=== PATIENT | female | born 1970 | race Hispanic/Latino ===

== ENCOUNTER 2019-09-02 06:21 | Observation (INO) | payer BC ==
[~2019-09-02] VITALS: Ht 182.9 cm; Wt 72.6 kg
[2019-09-02] MEDS ORDERED: SODIUM CHLORIDE 0.9% 1000ML 1,000 ML IV STA (06:44)
[2019-09-02] MEDS ORDERED: ASPIRIN 81 MG CHEW TAB PO ONE (06:45)
[2019-09-02 06:52] LABS: BASOPHILS # (AUTO) 0.2 (0.0-0.1); BASOPHILS % 1.5 % (0.0-1.0); EOSINOPHILS # (AUTO) 0.1 (0.0-0.4); EOSINOPHILS % 1.2 % (0.0-6.0); HEMATOCRIT 41.7 % (34.2-44.1); HEMOGLOBIN 13.9 g/dL (12.0-16.0); LYMPHOCYTES % 34.5 % (18.0-39.1); MEAN CORPUSCULAR HEMOGLOBIN 30.7 pg (28-32); MEAN CORPUSCULAR HGB CONC 33.3 g/dL (31-35); MEAN CORPUSCULAR VOLUME 92.1 fL (81-99); MONOCYTES # (AUTO) 1.1 (0.2-0.8); MONOCYTES % 9.4 % (4.4-11.3); NEUTROPHILS # (AUTO) 6.2 (2.1-6.9); NEUTROPHILS % 53.2 % (38.7-80.0); PLATELET COUNT 398 x10e3/uL (140-360); RED BLOOD COUNT 4.53 x10e6/uL (3.6-5.1)
[2019-09-02 06:58] LABS: INR 0.82; PROTHROMBIN TIME 11.8 seconds (11.9-14.5)
[2019-09-02 07:04] LABS: ALANINE AMINOTRANSFERASE 15 IU/L (0-55); ALBUMIN 3.6 g/dL (3.5-5.0); ALBUMIN/GLOBULIN RATIO 1.1 (0.8-2.0); ALKALINE PHOSPHATASE 100 IU/L (40-150); BLOOD UREA NITROGEN 18 mg/dL (7-26); BUN/CREATININE RATIO 23 (6-25); CARBON DIOXIDE 23 mmol/L (22-29); CHLORIDE 102 mmol/L (98-107); CREATINE KINASE 60 IU/L (29-168); EST GLOMERULAR FILTRATION RATE > 60 ML/MIN (60-); GLUCOSE 287 mg/dL (74-118); SODIUM 134 mmol/L (136-145)
--- NOTE | 2019-09-02 07:28 | Diagnostic Imaging Report ---
Examination: CT BRAIN WO CONTRAST History:Head trauma; facial droop. Comparison studies:None Technique: Axial images were obtained from the skull base to the vertex. Coronal and sagittal images reconstructed from the axial data. Dose modulation, iterative reconstruction, and/or weight based adjustment of the mA/kV was utilized to reduce the radiation dose to as low as reasonably achievable. Intravenous contrast: None Findings: Scalp: No abnormalities. Bones: No fractures, blastic or lytic lesions. Brain sulci: Appropriate for age. Ventricles: Ex vacuo dilation of the occipital horn of the left lateral ventricle. No hydrocephalus. Extra-axial space: No abnormalities. Parenchyma: Cortical based areas of encephalomalacia are identified in the bilateral occipital lobes (right lingual and left cuneus gyri) and are the result of prior vascular insult. No masses, hemorrhage, or acute cortical based vascular insults.. Sellar/suprasellar region: No abnormalities. Craniocervical junction: Patent foramen magnum. No Chiari one malformation. Incidental findings: None. Impression: No acute intracranial abnormalities. 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 Signed by: Dr. Aisha Ambrosio M.D. on 09/02/2019 7:25 AM
[2019-09-02 07:33] LABS: CLARITY,URINE CLEAR (CLEAR); COLOR,URINE YELLOW (YELLOW)
[2019-09-02 07:34] LABS: BACTERIA,URINE RARE /HPF; BILIRUBIN,URINE NEGATIVE (NEGATIVE); KETONES,URINE NEGATIVE (NEGATIVE); LEUKOCYTE ESTERASE ,URINE NEGATIVE (NEGATIVE); NITRITE,URINE NEGATIVE (NEGATIVE); PROTEIN,URINE DIPSTICK NEGATIVE (NEGATIVE); RBC,URINE 0-5 /HPF (0-5); URINE UROBILINOGEN 0.2 mg/dL (0.2 - 1); WBC,URINE (MAN) 0-5 /HPF (0-5)
[2019-09-02 07:35] LABS: EPITHELIAL CELLS,URINE FEW /LPF
--- NOTE | 2019-09-02 07:35 | Diagnostic Imaging Report ---
Examination: CT CERVICAL SPINE WO CONTRAST HISTORY:Neck pain and injury after trauma. COMPARISON:None. TECHNIQUE: Multidetector helical axial images were obtained without contrast from the foramen magnum to T1. Coronal and sagittal reformatted images were done. Bone and soft tissue windows were evaluated. Dose modulation, iterative reconstruction, and/or weight based adjustment of the mA/kV was utilized to reduce the radiation dose to as low as reasonably achievable. FINDINGS: Alignment:Normal alignment with straightening of normal lordosis. Vertebrae: Normal height and density. No acute fracture, infection or neoplasm. Disc space heights: Moderate to severe narrowing at C5-C6. Caliber of spinal canal: Developmentally normal. Posterior fossa and craniocervical junction: Foramen magnum patent. No Chiari 1 malformation. Soft tissues: No abnormality. Degenerative changes: Asymmetric to the right disc osteophyte complex at C5-C6 with severe right foraminal narrowing. No left foraminal or canal stenosis. The remaining levels demonstrate no disc bulge/ herniation or foraminal or canal stenosis. Visualized lung apices: No abnormalities. IMPRESSION: 1. No acute abnormalities. 2. Degenerative change at C5-C6. Signed by: Dr. Aisha Ambrosio M.D. on 09/02/2019 7:32 AM
[2019-09-02 07:36] LABS: AMPHETAMINES SCREEN,URINE NEGATIVE (NEGATIVE); BENZODIAZEPINES SCREEN,URINE NEGATIVE (NEGATIVE); PHENCYCLIDINE SCREEN,URINE NEGATIVE (NEGATIVE)
--- NOTE | 2019-09-02 07:36 | Diagnostic Imaging Report ---
EXAMINATION: PA and lateral views of the chest. COMPARISON: None CLINICAL HISTORY: Fall DISCUSSION: Lines/tubes: None. Lungs: The lungs are well inflated and clear. No pneumonia or pulmonary edema. Pleura: No pleural effusion or pneumothorax. Heart and mediastinum: The cardiomediastinal silhouette is normal. Bones and soft tissues: No acute bony abnormalities. IMPRESSION: No acute cardiopulmonary abnormalities. Signed by: Dr. Juan Mcgee M.D. on 09/02/2019 7:33 AM
[2019-09-02] MEDS ORDERED: MORPHINE SULFATE 2 MG/ML SYR 1ML IV PRN (07:45)
[2019-09-02] MEDS ORDERED: ONDANSETRON HCL INJ 2MG/ML 2ML 2 MG/ML VIAL IV PRN (07:45)
[2019-09-02 07:59] LABS: PREGNANCY TEST, URINE NEGATIVE (NEGATIVE)
--- OUTSIDE RECORDS SUMMARY | 2019-09-02 08:12 | XMS REPORT | Summary of Care ---
Author Author [facility] Organization [facility] Address Unknown Phone Unavailable Care Team Providers Care [facility] Account Manager Name Role Phone Micah Mendez MD PCP Reason for Visit * Reason Comments Follow Up Type 2. PT does not check BG regularly. lost meter in [place]. Encounter Details Care Team Description Date Type Department Kanu Gandara MD [address] [facility] [address], [address] [place] [address] Follow Up (Type 2. PT does not check BG regularly. lost meter in [place]. ) 03/07/2019 Office Visit [facility] Endocrinology [address]; [address] [place] [address] Allergies Comments Active Allergy Reactions Severity Noted Date cough Lisinopril Other (See 10/17/2018 Comments) documented as of this encounter (statuses as of 03/07/2019) Medications End Date Status Medication Sig Dispensed Refills Start Date Active aspirin 81 MG Take 81 mg by 0 tabletIndications: mouth daily. 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, Type 2 diabetes mellitus with hyperglycemia, with long-term current use of insulin Active Glucose Blood Strips accu check 400 Each (ACCU-CHEK COMPACT compact plus; 9 PLUS)Indications: 51 each=3 Diabetes mellitus drums; 4 secondary to times per pancreatectomy, Type 2 day, 90 day diabetes mellitus with supply hyperglycemia, with long-term current use of insulin Active Insulin Pen Needle (B-D Use as 400 Each UF III MINI PEN NEEDLES) directed 4x 9 31G X 5 MM daily with MISCIndications: Type 2 insulin; Dx diabetes mellitus with E11.9 hyperglycemia, with long-term current use of insulin, 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 Acute left MANAGER COSMETICS stroke 02/27/2014 Hyperlipidemia 02/27/2014 Uncontrolled diabetes mellitus 02/27/2014 Unspecified essential hypertension 02/27/2014 Factor V Leiden mutation 02/27/2014 documented as of this encounter (statuses as of 03/07/2019) Social History Date Tobacco Use Types Packs/Day Years Used Never Smoker Smokeless Tobacco: Never Used Drinks/Week oz/Week Comments Alcohol Use socially Yes Sex Assigned at Date Recorded Not on file Industry Job Start Date Occupation Not on file Not on file Not on file Travel End Travel History Travel Start No recent travel history available. documented as of this encounter Last Filed Vital Signs Reading Time Taken Comments Vital Sign 98/70 03/07/2019 3:14 PM CDT Blood Pressure 99 03/07/2019 3:14 PM CDT Pulse - - Temperature 16 03/07/2019 3:14 PM CDT Respiratory Rate - - Oxygen Saturation - - Inhaled Oxygen Concentration 73 kg (161 lb) 03/07/2019 3:14 PM CDT Weight 152.4 cm (5') 03/07/2019 3:14 PM CDT Height 31.44 03/07/2019 3:14 PM CDT Body Mass Index documented in this encounter Patient Instructions * Patient Instructions* Kanu Gandara MD - 03/07/2019 3:30 PM CDT DIABETES INSTRUCTIONS Your new diabetes regimen is as follows: - Jardiance 10 mg daily. - Humalog 10 units with each meal + scale below: Blood Sugar Additional Humalog Insulin Less than 150 No additional insulin 151-200 + 2 units 201-250 + 3 units 251-300 + 4 units 301-350 + 5 units 351-400 + 6 units Insulin Levemir 25 units daily. This is a long acting insulin. Please take at th e same time of the day. Week 1: Metformin XR 500 mg, take 1 tab at dinner Week 2: Metformin XR 500 mg, take 1 tab at breakfast and 1 tab at dinner Week 3: Metformin XR 500 mg, take 1 tab at breakfast and 2 tab at dinner Week 4: Metformin XR 500 mg, take 2 tab at breakfast and 2 tab at dinner PLEASE CHECK YOUR BLOOD GLUCOSE 4 TIMES A DAY: BEFORE BREAKFAST, BEFORE LUNCH, B EFORE DINNER AND AT BEDTIME. Please send the results through [employer] or call in the clinic in 2 weeks after this visit for our review and further recommendation s Important Reminders: - Please remember to obtain your yearly diabetic eye exam for diabetic retinopat hy if you have not done. Please send us a copy of the results if they were not done at [facility]. Our fax # is [phone]. - Please check your blood pressure at home, your blood pressure goal is less caro n 140/90 - Please check your feet daily for ulcers and infections - It is recommended that you eat Diabetic diet. More information can be found a t [email or web address]-[email or web address] - Eat meals on time and on a regular schedule - Blood sugar goals ---- Your fasting blood sugar should be between 90-130 ---- Your blood sugar after meals should be no greater than 180 Treatment of low blood sugar (less than 65) - the 1515 rule Eat 15 grams of carbohydrate 4 glucose tablets OR Half cup (4 ounces) of fruit juice or regular soda OR 6 hard candies OR 1 tablespoon of sugar OR honey Wait 15 minutes for the sugar to get into the blood and check your blood sugar. If it is below 65 then you can repeat with 15 more grams of carbohydrates. Your blood sugar should be checked to make sure it has come within a safe range PLEASE BRING A RECORD OF YOUR DILATED EYE EXAM at your next visit IT IS VERY IMPORTANT TO BRING YOUR BLOOD GLUCOSE LOGS WITH YOU TO EVERY ENDOCRIN E VISIT GENERAL INSTRUCTIONS Please go to the commercial front load driver on your way out today to schedule your next appointm ent. Please let us know what we can do better by providing comments on the survey you will receive. We value your feedback! Return to clinic in 3 months documented in this encounter Progress Notes * Kanu Gandara MD - 03/07/2019 3:30 PM CDT CC> T2DM, following since 12/2015 HPI> Melania Reynolds is a 49 y.o. 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 DM2- uncontrolled. Diagnosed in 12/2015. HEMOGLOBIN A1C Date Value Ref Range Status 02/27/2019 8.5 (H) 4.2 - 5.6 % Final Comment: [employer] GUIDELINES FOR HGB A1C: PREDIABETES/INCREASED RISK . . . . . . . 5.7-6.4% DIAGNOSIS OF DIABETES . . . . . . . . . >=6.5% WITH CONFIRMATION OR APPROPRIATE SYMPTOMS NOTE: ASSAY MAY BE AFFECTED BY HEMOGLOBINOPATHIES (SICKLE CELL ANEMIA, S-C DISEASE, OTHERS) OR ARTIFICIALLY LOWERED BY DECREASED RED CELL SURVIVAL (HEMOLYTIC ANEMIAS, BLOOD LOSS, ETC.). CONSIDER ALTERNATE TESTING OR LABORATORY CONSULTATION. Unless Otherwise Indicated, All Testing Performed At: [facility], [address] [place] [address] Solder Making Supervisor: Gonzalo Tapia M.D. [place] Number [id number] [facility] [place]. [id number] 10/11/2018 10.0 (H) 4.2 - 5.6 % Final Comment: [employer] GUIDELINES FOR HGB A1C: PREDIABETES/INCREASED RISK . . . . . . . 5.7-6.4% DIAGNOSIS OF DIABETES . . . . . . . . . >=6.5% WITH CONFIRMATION OR APPROPRIATE SYMPTOMS NOTE: ASSAY MAY BE AFFECTED BY HEMOGLOBINOPATHIES (SICKLE CELL ANEMIA, S-C DISEASE, OTHERS) OR ARTIFICIALLY LOWERED BY DECREASED RED CELL SURVIVAL (HEMOLYTIC ANEMIAS, BLOOD LOSS, ETC.). CONSIDER ALTERNATE TESTING OR LABORATORY CONSULTATION. Unless Otherwise Indicated, All Testing Performed At: [facility], [address] [place] [address] Solder Making Supervisor: Gonzalo Tapia M.D. CLIA Number [id number] [place]. [id number] 01/12/2018 9.2 (H) 4.2 - 5.6 % Final Comment: [employer] GUIDELINES FOR HGB A1C: PREDIABETES/INCREASED RISK . . . . . . . 5.7-6.4% DIAGNOSIS OF DIABETES . . . . . . . . . >=6.5% WITH CONFIRMATION OR APPROPRIATE SYMPTOMS NOTE: ASSAY MAY BE AFFECTED BY HEMOGLOBINOPATHIES (SICKLE CELL ANEMIA, S-C DISEASE, OTHERS) OR ARTIFICIALLY LOWERED BY DECREASED RED CELL SURVIVAL (HEMOLYTIC ANEMIAS, BLOOD LOSS, ETC.). CONSIDER ALTERNATE TESTING OR LABORATORY CONSULTATION. Unless Otherwise Indicated, All Testing Performed At: [facility], [address] [place] [id number] Solder Making Supervisor: Gonzalo Tapia M.D. NIKKIIA Number [id number] [facility] [place]. 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 Current regimen: not quite compliant with taking her meds - metformin 500 mgXL 2 tablets twice a day - sometimes she breaks it in half and only take 1 tablet a day, 50% of the time - Jardiance 10 mg daily. Understood risk of DKA, dehydration, yeast infection, U TI. - compliant - continue Levemir 25 units at night - compliant - Humalog 10 units with each meal + scale below: sometimes she forgets taking it at work. Sometimes she takes after eating. Blood Sugar Additional Humalog Insulin Less than 150 No additional insulin 151-200 + 2 units 201-250 + 3 units 251-300 + 4 units 301-350 + 5 units 351-400 + 6 units Not checking BG regularly Complications: Eye: no 02/2015--> good 2015; she missed it last 2 years. Plans to have one done this year. Kidney: neg microalbumin 03/2019. Not on arb or hsannon-I (causes cough) Denies neuropathy. Foot exam done 10/2018 lipitor - aching pain; ran out of crestor -> pravastatin--> stopped due to myalgias. Still with joint pain despite stopping pravastatin. Resumed Pravastatin with no issue No CAD. She has had CVA. Allergies Allergen Reactions Lisinopril Other (See Comments) cough Medications reviewed REVIEW OF SYSTEMS GEN stable weight, no fatigue CV no chest pain RESP no short of breath GI denies nausea, vomiting, constipation, diarrhea Neuro no headache/dizziness PHYSICAL EXAM There were no vitals taken for this visit. Wt Readings from Last 3 Encounters: 10/17/18 166 lb (75.3 kg) 01/19/18 164 lb (74.4 kg) 10/05/17 164 lb (74.4 kg) GEN: awake, alert, NAD NECK: Supple. PULM: CTAB, no wheezing or crackles CVS: RRR, no m/r/g ABD: Soft, Warm. NT/ND/NR. +BS. No masses, organomegaly, or bruits. Diabetic Foot Exam Performed 10/2018 Inspection Left - No ulcers or lesions noted and Right - No ulcers or lesions n oted Pulses Left Normal and Right Normal Monofilament Exam Left - Normal and Right - Normal LABS: REVIEWED Component Latest Ref Rng & Units 02/27/2019 GLUCOSE 70 - 99 MG/DL 141 (H) BLOOD UREA NITROGEN 6 - 20 MG/DL 16 CREATININE 0.60 - 1.30 MG/DL 0.58 (L) EGFR AA >60 ML/MIN/1.73 125 EGFR >60 ML/MIN/1.73 107 BUN/CREAT RATIO 6 - 28 RATIO 28 SODIUM 133 - 146 MEQ/L 139 POTASSIUM 3.5 - 5.4 MEQ/L 4.5 CHLORIDE 95 - 107 MEQ/L 101 CO2 19 - 31 MEQ/L 19 CALCIUM 8.5 - 10.5 MG/DL 9.0 PROTEIN TOTAL 6.1 - 8.3 G/DL 6.6 ALBUMIN 3.5 - 5.2 G/DL 4.2 GLOBULINS, SERUM, TOTAL 1.9 - 3.7 G/DL 2.4 A/G RATIO 1.0 - 2.6 RATIO 1.8 BILIRUBIN TOTAL <=1.2 MG/DL 0.3 ALKALINE PHOSPHATASE 40 - 128 U/L 83 AST (SGOT) 9 - 40 U/L 13 ALT (SGPT) 5 - 40 U/L 12 CHOLESTEROL <200 MG/DL 193 TRIGLYCERIDES <150 MG/DL 95 HDL >39 MG/DL 44 LDL CHOLESTEROL CALCULATED <100 MG/DL 130 (H) LDL/HDL RATIO, SERUM <3.22 RATIO 2.95 CREATININE URINE NOT ESTAB MG/DL 164.6 MICROALBUMIN URINE MG/DL 3.7 CALC MICROALB/CREAT RAND <30 MG/G 22 ICD-10-CM 1. Type 2 diabetes mellitus with complication, with long-term current use of ins ulin E11.8 Z79.4 ASSESSMENT Melania Reynolds is a 49 y.o. woman with medical history listed presents f or management of diabetes. 1. Diabetes mellitus with insulin use with hyperglycemia. 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 Understood risk of DKA, dehydration, yeast infection, U TI. - compliant - continue Levemir 25 units at night - compliant - Humalog 10 units with each meal + scale below: sometimes she forgets taking it at work. Sometimes she takes after eating. Blood Sugar Additional Humalog Insulin Less than 150 No additional insulin 151-200 + 2 units 201-250 + 3 units 251-300 + 4 units 301-350 + 5 units 351-400 + 6 units - Freestyle Huma prescribed again - Due for eye exam - patient to make appointment with her Rope Machine Setter. - Urine microalbumin: neg 03/2019, not on SHANNON/ARB, due again 03/2020 - FLP: on statin, FLP 03/2019 2. Dyslipidemia/CVA - resume pravastatin 20 mg since myalgias are occurring despite stopping pravast atin. Counseled to check blood glucose before meals and at bedtime Counseled regarding signs/symptoms of hypoglycemia. Hypoglycemia precautions and management discussed. Counseled to eat all meals on time to avoid hypoglycemia Counseled patient to wear socks/shoes that are loose and examine feet daily RTC 3 months with labs Kanu Gandara MD There are no Patient Instructions on file for this visit. documented in this encounter Plan of Treatment Health Maintenance Due Date Last Done Comments COLON CANCER SCREENIN1969 COLONOSCOPY MAMMOGRAM ANNUAL 1969 TETANUS SHOT (ADULT) 02/04/1984 ANNUAL DIABETIC 1987 RETINOPATHY SCREENING BMI FOLLOW UP PLAN 1987 HIV SCREENING 1987 CERVICAL CANCER SCREENING 1990 3 YEAR FOLLOW UP FLU VACCINE > 6 MONTHS 02/01/2019 A1C TESTING EVERY 6 08/30/2019 02/27/2019, 10/11/2018, 01/12/2018, MONTHS Additional history exists ANNUAL DIABETIC FOOT EXAM 10/18/2019 10/17/2018, 10/17/2018, 10/17/2018, Additional history exists documented as of this encounter Procedures Comments Procedure Name Priority Date/Time Associated Diagnosis POCT HEMOGLOBIN A1C Routine 03/07/2019 Type 2 diabetes mellitus 3:31 PM CDT with complication, with long-term current use of insulin documented in this encounter Results * POCT HEMOGLOBIN A1C (03/07/2019 3:31 PM CDT) HEMOGLOBIN A1C 8.2 (A) 4.0 - 5.6 % Specimen Blood documented in this encounter Visit Diagnoses Diagnosis Type 2 diabetes mellitus with complication, with long-term current use of insulin - Primary documented in this encounter Insurance Type Payer Benefit Subscriber ID Effective Phone Address Plan / Dates Group PPO BLUE CROSS BLUE SHIELD OUT OF xxxxxxxxx [facility] [id number] - [place] - [facility] [id number] documented as of this encounter
--- OUTSIDE RECORDS SUMMARY | 2019-09-02 08:12 | XMS REPORT ---
Author Author [facility] Address Unknown Phone Unavailable Care Team Providers Care Whittling Room Operator Name Role Phone DIOR GABINO Unavailable Unavailable Problems This patient has no known problems. Allergies, Adverse Reactions, Alerts This patient has no known allergies or adverse reactions. Medications This patient has no known medications. Results Test Description Test Time Test Comments Text Results Atomic Results Result Comments CHEST 2 VIEWS 2019-09-02 07:32:00 [place] [id number] Patient Name: ROBSON ZEPEDA MR #: [id number] : 1970 Age/Sex: 49/F Req #: [id number] Adm Physician: Ordered by: GABINO RADER DO Report #: [id number] Location: ER Room/Bed: Procedure: [id number] DX/CHEST 2 VIEWS Exam Date: 09/02/19 Exam Time: 0720 REPORT STATUS: Signed EXAMINATION: PA and lateral views of the chest. CHARLOTTE RISON: None CLINICAL HISTORY: Fall DISCUSSION: Lines/tubes: None. Lungs: The lungs are well inflated and clear. No pneumonia or pulmonary edema. Pleura: No pleural effusion or pneumothorax. Heart and mediastinum: The cardiomediastinal silhouette is normal. Bones and soft tissues: No acute bony abnormalities. IMPRESSION: No acute cardiopulmonary abnormalities. Signed by: Dr. Carla Vegas M.D. on 09/02/2019 7:33 AM Dictated By: CARLA VEGAS MD 2 Transcribed By: PATRICIA on 09/02/19732 COPY TO: RADERGABINO CT CERVICAL SPINE WO 2019-09-02 07:26:00 [place] [id number] Patient Name: ROBSON ZEPEDA MR #: [id number] : 1970 Age/Sex: 49/F Req #: [id number] Adm Physician: Ordered by: SABRINA ELLIS DO Report #: [id number] Location: ER Room/Bed: Procedure: [id number] CT/CT CERVICAL SPINE WO Exam Date: 09/02/19 Exam Time: 624 REPORT STATUS: Signed Examination: CT CERVICAL SPINE WO CONTRAST HIST ORY:Neck pain and injury after trauma. COMPARISON:None. TECHNIQUE: Multidetector helical axial images were obtained without contrast from the foramen magnum to T1. Coronal and sagittal reformatted images were done. Bone and soft tissue windows were evaluated. Dose modulation, iterative reconstruction, and/or weight based adjustment of the mA/kV was utilized to reduce the radiation dose to as low as reasonably achievable. FINDINGS: Alignment:Normal alignment with straightening of normal lordosis. Vertebrae: Normal height and density. No acute fracture, infection or neop lasm. Disc space heights: Moderate to severe narrowing at C5-C6. Caliber of spinal canal: Developmentally normal. Posterior fossa and craniocervical junction: Foramen magnum patent. No Chiari 1 malformation. Soft tissues: No abnormality. Degenerative changes: Asymmetric to the right disc osteophyte complex at C5-C6 with severe right foraminal narrowing. No left foraminal or canal stenosis. The remaining levels demonstrate no disc bulge/ herniation or foraminal or canal stenosis. Visualized lung apices: No abnormalities. IMPRESSION: 1. No acute abnormalities. 2. Degenerative change at C5-C6. Signed by: Dr. Aisha Ambrosio M.D. on 09/02/2019 7:32 AM Dictated By: AISHA MELENDEZ MD 1 Transcribed By: PATRICIA on 09/02/19731 COPY TO: SABRINA ELLIS DO CT BRAIN WO 2019-09-02 07:21:00 [place] [id number] Patient Name: ROBSON ZEPEDA MR #: [id number] : 1970 Age/Sex: 49/F Req #: [id number] Adm Physician: Ordered by: SABRINA ELLIS DO Report #: [id number] Location: ER Room/Bed: Procedure: [id number] CT/CT BRAIN WO Exam Date: 09/02/19 Exam Time: 624 REPORT STATUS: Signed Examination: CT BRAIN WO CONTRAST History:Head trauma; f acial droop. Comparison studies:None Technique: Axial images were obtained from the skull base to the vertex. Coronal and sagittal images reconstructed from the axial data. Dose modulation, iterative reconstruction, and/or weight based adjustment of the mA/kV was utilized to reduce the radiation dose to as low as reasonably achievable. Intravenous contrast: None Findings: Scalp: No abnormalities. Bones: No fractures, blastic or lytic lesions. Brain sulci: Appropriate for age. Ventricles: Ex vacuo dilation of the occipital horn of the left lateral ventricle. No hydrocephalus. Extra-axial space: No abnormalities. Parenchyma: Cortical based areas of encephalomalacia are identified in the bilateral occipital lobes (right lingual and left cuneus gyri) and are the result of prior vascular insult. No masses, hemorrhage, or acute cortical based vascular insults.. Sellar/suprasellar region: No abnormalities. Craniocervical junction: Patent foramen magnum. No Chiari one malformation. Incidental findings: None. Impression: No acute intracranial abnormalities. 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 Signed by: Dr. Aisha Ambrosio M.D. on 09/02/2019 7:25 AM Dictated By: AISHA MELENDEZ MD 4 Transcribed By: PATRICIA on 09/02/19724 COPY TO: SABRINA ELLIS DO SCR MAMM BILATERAL AUDRA CAD DIGITAL 2019-04-25 16:18:18 - SCR MAMM BILATERAL AUDRA CAD DIGITALBILATERAL DIGITAL SCREENING MAMMOGRAM 3D/2D WITH CAD: 04/25/2019CLINICAL: Asymptomatic. Digital breast tomosynthesis was performed in addition to routine CC and MLO views. Current mammographic images were evaluated by either a [employer] M-Vu or a [employer] ImageMedProer CAD (computer aided detection system). Comparison is made to exams dated 01/19/2018 mammogram, 05/04/2016 mammogram, and 01/28/2015 mammogram - [facility]-. The tissue of both breasts is heterogeneously dense. This may lower the sensitivity of mammography. No suspicious mass, architectural distortion, malignant type calcification, or lymph node abnormality detected. Breast architecture is stable compared to prior exams.IMPRESSION: NEGATIVEThere is no mammographic evidence of malignancy. Resume annual screening mammography in one year. Sherwin Ríos M.D. ss/penrad:04/25/2019 16:18:18 Art Instructor: Lennox DOWLING, [facility]-FWletter sent: BIRADS 1-2 Normal Mammogram BI-RADS: 1 Negative
[2019-09-02] MEDS ORDERED: DEXTROSE 50% SYRINGE 50 ML IV PRN ×2 (08:15→11:30)
[2019-09-02 08:29] VITALS: BP 154/92
--- NOTE | 2019-09-02 08:30 | NUR ---
Pt received from ER at this time. Pt is aox4 and able to verbalize needs but is speech is slurred due to stroke. Some drooling noted to left side as well. Pt denies any pain, SOB. Consult for Dr. Hsu was called. 0 s/s of acute distress noted.
[2019-09-02] MEDS ORDERED: METFORMIN HCL500 MG PO (09:25)
[2019-09-02] MEDS ORDERED: HUMALOG100 UNIT/1 SQ (09:25)
[2019-09-02] MEDS ORDERED: JARDIANCE10 MG PO (09:25)
[2019-09-02] MEDS ORDERED: LEVEMIR100 UNIT/1 SQ (09:25)
[2019-09-02] MEDS ORDERED: PRAVASTATIN SOD10 MG PO (09:25)
[2019-09-02] MEDS ORDERED: INSULIN REGULAR, HUMAN 100 UNIT/1 ML 3ML VIAL SQ SCH (11:30)
[2019-09-02] MEDS ORDERED: HYDRALAZINE HCL 20 MG/ML VIAL IV PRN (11:45)
[2019-09-02] MEDS ORDERED: SODIUM CHLORIDE 0.9% 100 ML ONE (12:08)
[2019-09-02] MEDS ORDERED: IOPAMIDOL 370 MG/ML 200 ML INFUS..BTL INJ ONE (12:08)
[2019-09-02] MEDS: SODIUM CHLORIDE 0.9% 1000ML 1,000 ML IV SCH ×3 (12:15→23:44)
[2019-09-02] MEDS: INSULIN LISPRO 100 UNIT/1 ML 3ML VIAL SQ SCH ×3 (12:15→20:44)
[2019-09-02 12:18] VITALS: BP 135/78
--- NOTE | 2019-09-02 14:13 | Diagnostic Imaging Report ---
Examination: Cervical and Intracranial CT Angiogram with Contrast History: Facial droop. Comparison studies: None Technique: Axial images were obtained from the thoracic inlet. Coronal and sagittal images reconstructed from the axial data. Intravenous contrast: 100 mL of Isovue 370. Degree of stenosis at the carotid bulbs, if present, will be calculated using NASCET criteria where the smallest diameter at the location of stenosis is compared to the diameter of the more distal non-diseased vessel lumen. Computer generated maximum intensity projection and 3D images of the cervical and intracranial anterior and posterior circulations were performed on a separate workstation. Dose modulation, iterative reconstruction, and/or weight based adjustment of the mA/kV was utilized to reduce the radiation dose to as low as reasonably achievable. Findings: CTA neck: Aortic arch and major vessels: Patent. Nonstenotic atherosclerotic calcification. Common carotid arteries: Patent Cervical carotid bifurcations: Right: Patent. Left :Patent. Internal carotid arteries: Right: Patent. Left: Patent. Vertebral arteries: Hypoplastic on the right from V1-proximal V4. The mid to distal right V4 demonstrates contrast opacification probably due to retrograde flow from the basilar and variant left vertebral artery. The left vertebral artery originates from the left external carotid artery and becomes the V3 and V4 segments. Absent left V1 and V2. CTA head: Internal carotid arteries: Patent. Anterior cerebral arteries: Patent A1 and A2 segments. Middle cerebral arteries: Patent M1 and M2 segments. Posterior cerebral arteries: Patent P1 and P2 segments. Vertebro-basilar system: Patent basilar. Refer to above with regard to vertebral arteries. Anatomical variants: Anterior communicating artery :Present Posterior communicating arteries: Not visualized. Vertebral arteries: Left dominant with variant anatomy. IMPRESSION: 1. No cervical or intracranial arterial stenosis or occlusion or vascular malformation. 2. Nonstenotic calcification of the aortic arch. 3. Left vertebral artery variant anatomy with origin from the left external carotid artery. Hypoplastic right vertebral artery with patent mid to distal right V4 vertebral artery segment. Signed by: Dr. Aisha Ambrosio M.D. on 09/02/2019 2:11 PM
--- NOTE | 2019-09-02 14:31 | Diagnostic Imaging Report ---
Examination: MRI BRAIN WO CONTRAST History: Facial droop Comparison studies: Head CT from earlier today. Technique: Sagittal T2; axial DWI, FLAIR, GRE or SWI, T1, Coronal FLAIR. Intravenous contrast: None Findings: Scalp: No abnormal signal. No masses. Bone marrow: Normal in signal intensity. Brain volume: Adequate for age. No volume loss. Ventricles: Ex vacuo dilation of the occipital horn of the left lateral ventricle. No hydrocephalus. Extra-axial spaces: No abnormalities. Parenchyma: Cortical based areas of encephalomalacia are identified in the bilateral occipital lobes (right lingual and left cuneus gyri) and are the result of prior vascular insult. There is restricted diffusion of the left frontal operculum and left precentral gyrus with mild cortical signal change in the operculum. There are many punctate areas of T2/FLAIR hyperintensity in the periventricular and subcortical white matter, nonspecific. No masses, hemorrhage. Suprasellar and sellar region: No abnormalities. Craniocervical junction: No abnormalities. The foramen magnum is patent. No Chiari malformations. Vessels: Normal flow-voids in the arteries and sinuses. Additional findings:None. IMPRESSION: Hyperacute, nonhemorrhagic right middle cerebral artery infarction. Mild chronic microvascular ischemic change. 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 Dr. Aisha Ambrosio discussed hyperacute infarct finding with Ana Morales FR[employer] FOODS TECHNICIAN on 09/02/2019 at 1418 hours. Ms Morales said she would convey the message to Dr. Hsu, neurologist. Signed by: Dr. Aisha Ambrosio M.D. on 09/02/2019 2:28 PM
--- NOTE | 2019-09-02 15:00 | NUR ---
Results of MRI of brain called to Dr. Hsu and no new orders received.
[2019-09-02 16:00] VITALS: BP 143/77
[2019-09-02 16:08] LABS: CHOL/HDL RATIO 3.6 (3.0-3.6)
[2019-09-02] MEDS: FAMOTIDINE 20 MG TAB PO SCH (17:25)
[2019-09-02] MEDS: APIXABAN 5 MG TABLET PO SCH (17:25)
[2019-09-02] MEDS: ACETAMINOPHEN 325 MG TAB PO PRN (17:26)
--- NOTE | 2019-09-02 17:59 | Consultation ---
DATE OF CONSULTATION: 09/02/2019 Neurology Consultation HISTORY OF PRESENT ILLNESS: She is a 49-year-old right-handed female, who comes to my attention for sudden onset acute neurological deficits, specifically left hand and face weakness. 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 In any case, she woke up with left-sided hemiparesis and mild , came to the emergency room. She was out of the tPA window, tPA was not given, and she states that at home she does have a history of hypertension. She denies history of diabetes. She does have a known history of hyperhomocystinemia, which is hypercoagulable state. She is not taking anticoagulation. Denies arrhythmias. Denies seizures. Denies previous cardiovascular history, but endorses a previous history of a stroke as well. She denies tobacco, alcohol, or drugs. REVIEW OF SYSTEMS: Other than weakness is entirely negative. PHYSICAL EXAMINATION: VITAL SIGNS: We have a temperature of 98.2, pulse of 104 and regular, and blood pressure is 154/92. NEUROLOGIC: Extraocular muscles intact. Face shows upper motor neuron left facial weakness with drooling, but eyelid. Strength in the left arm is diminished. Right arm is 5/5. There is no ataxia. There is mild dysmetria in the left hand. Reflexes are symmetric. Toes are downgoing bilaterally. Sensory is grossly intact with some decrement in the left arm. CARDIOVASCULAR: Regular rate and rhythm. PULMONARY: Clear. ABDOMEN: Soft and nontender. ASSESSMENT AND PLAN: We have Melania Reynolds who is a 49-year-old female with history of hyperhomocystinemia. I am going to recheck that lab. I am going to check for hypercoagulable state as well. We will advance her to full anticoagulation due to hypercoagulable state, get an echocardiogram and carotid duplex and vascular imaging of the head and neck and I would recommend hematology evaluation given the patient's history of previous stroke and hypercoagulable state at the young age. Otherwise, PT, OT, and speech therapy were recommended as well as outpatient rehab. MD CARRINGTON CHRISTIANSEN /[id number]
--- NOTE | 2019-09-02 19:10 | NUR ---
Completed shift report completed with morning nurse. Pt alert to name, lying in bed HOB 30 degrees. Denies pain at this time. Call light within reach. Will continue to monitor.
[2019-09-02 20:00] VITALS: BP 122/61
[2019-09-02 21:34] VITALS: BP 122/61
[2019-09-03] VITALS: BP 132/63
[2019-09-03 04:00] VITALS: BP 160/77
[2019-09-03 05:47] LABS: BASOPHILS # (AUTO) 0.2 (0.0-0.1); BASOPHILS % 1.3 % (0.0-1.0); EOSINOPHILS # (AUTO) 0.1 (0.0-0.4); EOSINOPHILS % 0.8 % (0.0-6.0); HEMATOCRIT 39.5 % (34.2-44.1); HEMOGLOBIN 13.1 g/dL (12.0-16.0); LYMPHOCYTES # (AUTO) 4.1 (1.0-3.2); LYMPHOCYTES % 32.6 % (18.0-39.1); MEAN CORPUSCULAR HEMOGLOBIN 30.4 pg (28-32); MEAN CORPUSCULAR HGB CONC 33.2 g/dL (31-35); MEAN CORPUSCULAR VOLUME 91.6 fL (81-99); MONOCYTES % 7.8 % (4.4-11.3); NEUTROPHILS # (AUTO) 7.1 (2.1-6.9); NEUTROPHILS % 57.2 % (38.7-80.0); PLATELET COUNT 387 x10e3/uL (140-360); RED BLOOD COUNT 4.31 x10e6/uL (3.6-5.1)
[2019-09-03 06:11] LABS: BLOOD UREA NITROGEN 11 mg/dL (7-26); BUN/CREATININE RATIO 19 (6-25); CALCIUM 7.9 mg/dL (8.4-10.2); CARBON DIOXIDE 21 mmol/L (22-29); CHLORIDE 107 mmol/L (98-107); CREATININE, SERUM 0.57 mg/dL (0.57-1.11); EST GLOMERULAR FILTRATION RATE > 60 ML/MIN (60-); GLUCOSE 168 mg/dL (74-118); SODIUM 136 mmol/L (136-145)
[2019-09-03 06:30] LABS: MAGNESIUM 1.6 MG/DL (1.3-2.1)
--- NOTE | 2019-09-03 07:05 | NUR ---
BS shift report with morning nurse. Pt lying in bed, no acute distress noted.
[2019-09-03] MEDS: INSULIN LISPRO 100 UNIT/1 ML 3ML VIAL SQ SCH ×3 (07:30→16:30)
--- NOTE | 2019-09-03 07:35 | NUR ---
PATIENT ASSISTED TO THE RESTROOM AND BACK TO BED, NO DISTRESS NOTED. BRUISE TO RIGHT EYE, S/P FALL AT HOME. BED IN LOWER POSITION, CALL LIGHT AT REACH.
[2019-09-03 07:40] VITALS: BP 138/68
[2019-09-03] MEDS: FAMOTIDINE 20 MG TAB PO SCH ×2 (07:47→17:08)
[2019-09-03 07:49] VITALS: BP 138/68
[2019-09-03] MEDS: SODIUM CHLORIDE 0.9% 1000ML 1,000 ML IV SCH (07:57)
[2019-09-03] MEDS: ACETAMINOPHEN 325 MG TAB PO PRN (08:30)
[2019-09-03 08:46] LABS: THYROID STIMULATING HORMONE 0.788 uIU/mL (0.350-4.940)
[2019-09-03] MEDS: APIXABAN 5 MG TABLET PO SCH ×2 (09:19→17:08)
[2019-09-03] MEDS ORDERED: ELIQUIS5 MG PO (09:24)
[2019-09-03] MEDS ORDERED: ONDANSETRON HCL 4 MG ORAL DISINTEGRATING TAB PO PRN (10:30)
--- NOTE | 2019-09-03 11:30 | NUR ---
PATIENT AMBULATING IN HALLWAY WITH PHYSICAL THERAPY, NO COMPLAIN VOICED. WILL CONTINUE TO MONITOR.
[2019-09-03 11:38] VITALS: BP 118/74
--- NOTE | 2019-09-03 12:27 | NUR ---
Discontinuing PT services since patient is independent in functional mobility. Thank you. Addendum: 09/03/19 at 1228 by Yazan carlson PT Amended: Links added.
--- NOTE | 2019-09-03 12:37 | NUR ---
patient doing well 96.8 88 160/77 eomi face l umn weakness speech mild dysarthria left arm 3/5 right 5/5 rrr cta abd soft nt no ataxia a/p stroke hx of stroke at young age likely underlying hypercoag state on anticoagulation see hematology pt ot rehab evla statin blood workup in progress blood pressure contorl, max systolid 140
[2019-09-03 15:25] VITALS: BP 135/83
--- NOTE | 2019-09-03 15:35 | Consultation ---
DATE OF CONSULTATION: 09/03/2019 REASON FOR CONSULTATION: Hypercoagulable disorder. HISTORY OF PRESENT ILLNESS: She is 49-year-old female with past medical history include CVA x2 with residual neurological deficit. Currently, in hospital with sudden onset of acute neurological deficit, include left hand and face weakness. She was diagnosed first time with CVA when she was very young. She continued on antiplatelet and anticoagulation treatment. Recently, anticoagulation was discontinued. She was on Xarelto. She also has a history of hyperhomocysteinemia. She is currently started on Eliquis. She was followed neurologist. She had hypercoagulable workup ordered. Her MRI showed hyperacute nonhemorrhagic right middle cerebral artery infarction with chronic changes. Her recent labs reported normal. PAST MEDICAL HISTORY: Stroke, hyperhomocysteinemia. ALLERGIES: LIST REVIEWED. MEDICATIONS: List reviewed. REVIEW OF SYSTEMS: As per HPI. FAMILY HISTORY: Not relevant. PHYSICAL EXAMINATION: GENERAL: Alert, awake, communicative with some residual memory deficits. HEENT: Normocephalic, atraumatic. Sclerae are pale. Conjunctivae clear. NECK: Supple. CHEST: Clear to auscultation. CARDIOVASCULAR: Regular rate and rhythm. ABDOMEN: Soft, nontender. EXTREMITIES: Some swelling. NET WPF DEVELOPER: Some left facial weakness. LABS AND IMAGING: Reviewed. ASSESSMENT AND PLAN: 1. The patient with history of hyperhomocysteinemia, history of stroke twice, was managed with Xarelto, recently discontinued admitted with sudden stroke. 2. Likely underlying hypercoagulable disorder. 3. Hypercoagulable workup is already requested. 4. The patient already started on Eliquis. RECOMMENDATION: 1. Continue lifelong anticoagulation with antiplatelet medication. 2. Monitor neurological signs and symptoms very closely. 3. Rehab. 4. Social support. 5. Nutritional support. 6. We will monitor the patient very closely. MD JAMARCUS Jack/MODL /[id number]
--- NOTE | 2019-09-03 18:15 | NUR ---
PATIENT DISCHARGED HOME. DISCHARGE INSTRUCTIONS, PRESCRIPTION, AND FOLLOW UP GIVEN TO PATIENT, SHE VERBALIZED UNDERSTANDING.IV TO RIGHT AC REMOVED WITH TIP INTACT. ALL PERSONAL ITEMS TAKEN WITH PATIENT. REFUSED WHEEL CHAIR, BUT WAS ACCOMPANIED BY HOSPITAL STAFF TO FRONT LOBBY IN STABLE CONDITION.
--- NOTE | 2019-09-04 19:13 | Discharge Summary ---
ADMISSION DIAGNOSES: 1. Facial droop. 2. Type 2 diabetes. 3. Obesity with BMI of 31.2. 4. Factor V Leiden. DISCHARGE DIAGNOSES: 1. Facial droop. 2. Type 2 diabetes. 3. Obesity with BMI of 31.2. 4. Factor V Leiden. 5. Right middle cerebral artery infarction. HISTORY: Type 2 diabetes, hyperlipidemia, CVA, and factor V. SURGICAL HISTORY: Splenectomy, laparoscopic liver surgery, and bilateral knee surgery. FAMILY HISTORY: The patient's grandmother had diabetes. SOCIAL HISTORY: Occasional alcohol use. HOSPITAL COURSE: A 49-year-old female with past medical history of factor V, admits with complaints of left facial droop that she noticed around 05:00 a.m. with slurred speech after having a fall while walking to the restroom. She called her father, had trouble speaking, so he called the ambulance. On admission, CT of the brain was done, which showed no acute abnormality. CT of the C-spine showed no acute abnormality. Chest x-ray was negative. EKG showed normal sinus rhythm. Echo showed an EF of 50%. Bilateral carotid Doppler showed evidence of carotid disease, so Neurology ordered a CTA of the head and neck, which showed no cervical or intracranial arterial stenosis or occlusion or vascular malformation. The patient then had an MRI of the brain per Neurology recommendation, which showed a hyperacute nonhemorrhagic right middle cerebral artery infarction and chronic bilateral posterior cerebral artery territory insult. Urine drug screen was negative. The patient was started on Eliquis. Hematology was then consulted, who agreed with Eliquis. The patient's cholesterol was 206. She says she does not take her cholesterol medicine on a daily basis, but she will start to do so. She will discharge home on same prescriptions plus Eliquis. She will follow up with Hematology for any refills of Eliquis. The patient understands discharge instructions and agrees to plan. Dictated by Jenifer Griffith NP Radames Torres MD AKBAR/MODL /[id number]
== END 2019-09-03 18:10 | disposition home or self-care (01) ==
LOC: ER 06:21 → ERHOLD 07:44 → MED/SURG3 08:31
PROVIDERS: ADMIT Internal Medicine; ATTEND Internal Medicine
DX: I63.511 Cerebral infarction due to unspecified occlusion or stenosis of right middle cerebral artery (principal); R29.810 Facial weakness; G81.94 Hemiplegia, unspecified affecting left nondominant side; E72.11 Homocystinuria; D68.51 Activated protein C resistance; E11.9 Type 2 diabetes mellitus without complications; E78.5 Hyperlipidemia, unspecified; Z83.3 Family history of diabetes mellitus; Z80.9 Family history of malignant neoplasm, unspecified; E66.9 Obesity, unspecified; Z68.31 Body mass index [BMI] 31.0-31.9, adult; Z86.73 Personal history of transient ischemic attack (TIA), and cerebral infarction without residual deficits; R47.1 Dysarthria and anarthria; Z79.4 Long term (current) use of insulin
CPT/HCPCS: 36415 ×2; 70450; 70496; 70498; 70551; 71046; 72125; 80048; 80053; 80061; 80307; 81001; 81025; 81240; 81291; 82550; 82553; 82746; 82948 ×2; 83036; 83090; 83735; 84443; 84484; 85025 ×2; 85300; 85303; 85306; 85307; 85420; 85597; 85610; 85613; 85730; 86039; 93005; 93306; 93880; 96360; 96361; 97139; 97161; 97530; 99284; G0378 ×2; J7030 ×2; J7050; Q9967

== ENCOUNTER 2021-02-12 12:57 | Inpatient (IN) | payer BC ==
[~2021-02-12] VITALS: Ht 152.4 cm; Wt 68.9 kg
[~2021-02-12 12:57] MED LIST: ELIQUIS5 MG PO; HUMALOG100 UNIT/1 SQ; JARDIANCE10 MG PO; LEVEMIR100 UNIT/1 SQ; METFORMIN HCL500 MG PO; PRAVASTATIN SOD10 MG PO
[2021-02-12] MEDS ORDERED: SODIUM CHLORIDE 0.9% 1000ML 1,000 ML IV SCH (15:00)
[2021-02-12] MEDS ORDERED: DEXAMETHASONE SOD PHOS INJ 4 MG/ML VIAL IV ONE (15:15)
[2021-02-12] MEDS ORDERED: SODIUM CHLORIDE 0.9% 1000ML 1,000 ML ONE (15:59)
[2021-02-12] MEDS ORDERED: SODIUM CHLORIDE 0.9% 50ML 50 ML ONE (15:59)
[2021-02-12] MEDS ORDERED: DEXAMETHASONE SOD PHOS INJ 4 MG/ML VIAL ONE (15:59)
[2021-02-12] MEDS ORDERED: CEFTRIAXONE 1 GM VIAL ONE (16:00)
[2021-02-12] MEDS ORDERED: SODIUM CHLORIDE 0.9% 250ML 250 ML ONE (16:00)
[2021-02-12] MEDS: CEFTRIAXONE 1 GM in SODIUM CHLORIDE 0.9% 50ML 50 ML IV SCH (16:00)
[2021-02-12] MEDS: SODIUM CHLORIDE 0.9% 1000ML 1,000 ML IV SCH (16:28)
[2021-02-12 17:05] LABS: CREATINE KINASE MB 0.3 ng/mL (0-5.0)
[2021-02-12 20:49] VITALS: BP 119/71
[2021-02-12 21:10] VITALS: BP 119/71
[2021-02-13] VITALS (8 sets, daily range): BP systolic 127–150; BP diastolic 73–84
[2021-02-13] MEDS: SODIUM CHLORIDE 0.9% 1000ML 1,000 ML IV SCH ×3 (04:46→20:48)
[2021-02-13] MEDS ORDERED: ONDANSETRON HCL INJ 2MG/ML 2ML 2 MG/ML VIAL IV PRN (06:45)
[2021-02-13] MEDS ORDERED: DOCUSATE SODIUM 100 MG CAP PO PRN (06:45)
[2021-02-13] MEDS ORDERED: DEXTROSE 50% SYRINGE 50 ML IV PRN (07:00)
[2021-02-13] MEDS: FAMOTIDINE 20 MG TAB PO SCH ×2 (07:30→16:30)
[2021-02-13 07:45] LABS: BASOPHILS % 0.3 % (0.0-1.0); HEMATOCRIT 42.3 % (34.2-44.1); HEMOGLOBIN 13.6 g/dL (12.0-16.0); LYMPHOCYTES # (AUTO) 1.3 (1.0-3.2); LYMPHOCYTES % 11.8 % (18.0-39.1); MEAN CORPUSCULAR HEMOGLOBIN 29.6 pg (28-32); MEAN CORPUSCULAR HGB CONC 32.2 g/dL (31-35); MONOCYTES # (AUTO) 0.4 (0.2-0.8); MONOCYTES % 3.4 % (4.4-11.3); NEUTROPHILS # (AUTO) 9.5 (2.1-6.9); NEUTROPHILS % 83.9 % (38.7-80.0); PLATELET COUNT 289 x10e3/uL (140-360); RED CELL DISTRIBUTION WIDTH 13.1 % (11.7-14.4)
[2021-02-13 08:11] LABS: ANION GAP 16.9 mmol/L (8-16); CREATININE, SERUM 0.62 mg/dL (0.57-1.11); POTASSIUM 3.9 mmol/L (3.5-5.1)
[2021-02-13 08:34] LABS: ALBUMIN 2.3 g/dL (3.5-5.0); BILIRUBIN,DIRECT 0.2 mg/dL (0.0-0.5); CHOL/HDL RATIO 3.7 (3.0-3.6); MAGNESIUM 1.9 MG/DL (1.3-2.1); PHOSPHORUS 2.3 MG/DL (2.3-4.7)
[2021-02-13] MEDS: INSULIN REGULAR, HUMAN 100 UNIT/1 ML SQ SCH ×4 (08:40→20:40)
[2021-02-13] MEDS: DEXAMETHASONE SOD PHOS INJ 4 MG/ML VIAL IV SCH (09:00)
[2021-02-13] MEDS: APIXABAN 5 MG TABLET PO SCH ×2 (09:00→17:00)
[2021-02-13] MEDS: CEFTRIAXONE 1 GM in SODIUM CHLORIDE 0.9% 50ML 50 ML IV SCH (09:00)
[2021-02-13] MEDS ORDERED: REMDESIVIR 200MG/NS 100ML 200 MG IV ONE (14:00)
[2021-02-13] MEDS ORDERED: ENOXAPARIN SOD INJ 40 MG/0.4 ML SYR SC SCH (17:00)
[2021-02-13] MEDS: INSULIN GLARGINE 100 UNITS/ML VIAL SQ SCH (20:40)
[2021-02-13] MEDS ORDERED: ZOLPIDEM TARTRATE 5 MG TAB PO PRN (21:00)
[2021-02-14] VITALS (8 sets, daily range): BP systolic 122–147; BP diastolic 70–88
[2021-02-14] MEDS: SODIUM CHLORIDE 0.9% 1000ML 1,000 ML IV SCH ×2 (04:18→16:37)
[2021-02-14] MEDS: ACETAMINOPHEN 325 MG TAB PO PRN (05:56)
[2021-02-14] MEDS: CEFTRIAXONE 1 GM in SODIUM CHLORIDE 0.9% 50ML 50 ML IV SCH (08:14)
[2021-02-14] MEDS: DEXAMETHASONE SOD PHOS INJ 4 MG/ML VIAL IV SCH (08:14)
[2021-02-14] MEDS: FAMOTIDINE 20 MG TAB PO SCH ×2 (08:14→16:37)
[2021-02-14] MEDS: APIXABAN 5 MG TABLET PO SCH ×2 (08:14→20:35)
[2021-02-14] MEDS: INSULIN REGULAR, HUMAN 100 UNIT/1 ML SQ SCH ×4 (08:26→21:06)
[2021-02-14] MEDS: REMDESIVIR 100MG/NS 100ML 100 MG IV SCH (13:37)
[2021-02-14] MEDS: GUAIFENESIN/DEXTROMETHORPHAN LIQD 5 ML UDC PO SCH ×2 (13:37→21:07)
[2021-02-14] MEDS ORDERED: GUAIFENESIN/DEXTROMETHORPHAN LIQD 5 ML UDC NG SCH (14:00)
[2021-02-14] MEDS ORDERED: ALBUTEROL/IPRATROPIUM 3 ML NEB NEB PRN (17:30)
[2021-02-14] MEDS: ALBUTEROL SULFATE HFA 8GM INHALATION AEROSOL INH PRN (17:36)
[2021-02-14] MEDS: INSULIN GLARGINE 100 UNITS/ML VIAL SQ SCH (21:00)
[2021-02-15] VITALS (8 sets, daily range): BP systolic 137–155; BP diastolic 79–92
[2021-02-15] MEDS: SODIUM CHLORIDE 0.9% 1000ML 1,000 ML IV SCH ×2 (03:45→13:09)
[2021-02-15] MEDS: GUAIFENESIN/DEXTROMETHORPHAN LIQD 5 ML UDC PO SCH ×3 (06:00→22:00)
[2021-02-15] MEDS: ACETAMINOPHEN 325 MG TAB PO PRN (06:10)
[2021-02-15] MEDS: ALBUTEROL SULFATE HFA 8GM INHALATION AEROSOL INH PRN ×2 (07:06→16:08)
[2021-02-15] MEDS: CEFTRIAXONE 1 GM in SODIUM CHLORIDE 0.9% 50ML 50 ML IV SCH (08:57)
[2021-02-15] MEDS: DEXAMETHASONE SOD PHOS INJ 4 MG/ML VIAL IV SCH (08:57)
[2021-02-15] MEDS: APIXABAN 5 MG TABLET PO SCH ×2 (08:57→21:00)
[2021-02-15] MEDS: FAMOTIDINE 20 MG TAB PO SCH ×2 (08:57→16:59)
[2021-02-15] MEDS: INSULIN REGULAR, HUMAN 100 UNIT/1 ML SQ SCH ×4 (09:09→21:00)
[2021-02-15 09:36] LABS: BASOPHILS % 0.1 % (0.0-1.0); HEMATOCRIT 38.4 % (34.2-44.1); HEMOGLOBIN 12.7 g/dL (12.0-16.0); LYMPHOCYTES # (AUTO) 1.8 (1.0-3.2); LYMPHOCYTES % 8.9 % (18.0-39.1); MEAN CORPUSCULAR HEMOGLOBIN 29.6 pg (28-32); MEAN CORPUSCULAR HGB CONC 33.1 g/dL (31-35); MEAN CORPUSCULAR VOLUME 89.5 fL (81-99); MONOCYTES % 4.8 % (4.4-11.3); NEUTROPHILS # (AUTO) 17.1 (2.1-6.9); NEUTROPHILS % 85.4 % (38.7-80.0); PLATELET COUNT 466 x10e3/uL (140-360); RED BLOOD COUNT 4.29 x10e6/uL (3.6-5.1); RED CELL DISTRIBUTION WIDTH 13.1 % (11.7-14.4)
[2021-02-15 09:52] LABS: ANION GAP 10.7 mmol/L (8-16); CALCIUM 7.8 mg/dL (8.4-10.2); CREATININE, SERUM 0.66 mg/dL (0.57-1.11); POTASSIUM 3.7 mmol/L (3.5-5.1)
[2021-02-15 10:06] LABS: ALBUMIN 2.1 g/dL (3.5-5.0); BILIRUBIN,DIRECT 0.2 mg/dL (0.0-0.5)
[2021-02-15] MEDS: REMDESIVIR 100MG/NS 100ML 100 MG IV SCH (13:09)
[2021-02-15] MEDS: INSULIN GLARGINE 100 UNITS/ML VIAL SQ SCH (21:00)
[2021-02-16] VITALS (8 sets, daily range): BP systolic 131–161; BP diastolic 71–92
[2021-02-16] MEDS: SODIUM CHLORIDE 0.9% 1000ML 1,000 ML IV SCH ×3 (00:16→19:45)
[2021-02-16 05:09] LABS: BASOPHILS % 0.1 % (0.0-1.0); HEMOGLOBIN 11.9 g/dL (12.0-16.0); LYMPHOCYTES # (AUTO) 1.6 (1.0-3.2); LYMPHOCYTES % 11.5 % (18.0-39.1); MEAN CORPUSCULAR HEMOGLOBIN 29.5 pg (28-32); MEAN CORPUSCULAR HGB CONC 33.1 g/dL (31-35); MEAN CORPUSCULAR VOLUME 89.3 fL (81-99); MONOCYTES % 6.9 % (4.4-11.3); NEUTROPHILS # (AUTO) 11.3 (2.1-6.9); NEUTROPHILS % 80.3 % (38.7-80.0); PLATELET COUNT 455 x10e3/uL (140-360); RED BLOOD COUNT 4.03 x10e6/uL (3.6-5.1); RED CELL DISTRIBUTION WIDTH 12.7 % (11.7-14.4)
[2021-02-16] MEDS: GUAIFENESIN/DEXTROMETHORPHAN LIQD 5 ML UDC PO SCH ×3 (06:00→22:04)
[2021-02-16 07:52] LABS: LYMPHOCYTES % (MANUAL) 13 % (19-48); MONOCYTES % (MANUAL) 8 % (3.4-9.0); NEUTROPHILS % (MANUAL) 75 % (40-74); PLATELET ESTIMATE ADEQUATE; PLATELET MORPHOLOGY COMMENT NORMAL
[2021-02-16 07:53] LABS: RBC MORPHOLOGY COMMENT NORMAL
[2021-02-16] MEDS: INSULIN LISPRO 100 UNIT/1 ML 3ML VIAL SQ SCH ×4 (09:56→21:46)
[2021-02-16] MEDS: INSULIN REGULAR, HUMAN 100 UNIT/1 ML SQ SCH ×4 (09:59→21:46)
[2021-02-16] MEDS: FAMOTIDINE 20 MG TAB PO SCH ×2 (10:00→15:46)
[2021-02-16] MEDS: DEXAMETHASONE SOD PHOS INJ 4 MG/ML VIAL IV SCH (10:00)
[2021-02-16] MEDS: APIXABAN 5 MG TABLET PO SCH ×2 (10:00→21:45)
[2021-02-16] MEDS: REMDESIVIR 100MG/NS 100ML 100 MG IV SCH (13:32)
[2021-02-16] MEDS: ACETAMINOPHEN 325 MG TAB PO PRN (21:45)
[2021-02-16] MEDS: INSULIN GLARGINE 100 UNITS/ML VIAL SQ SCH (21:46)
[2021-02-17] VITALS (8 sets, daily range): BP systolic 125–159; BP diastolic 74–87
[2021-02-17] MEDS: GUAIFENESIN/DEXTROMETHORPHAN LIQD 5 ML UDC PO SCH ×3 (05:17→21:43)
[2021-02-17] MEDS: SODIUM CHLORIDE 0.9% 1000ML 1,000 ML IV SCH ×2 (05:17→14:58)
[2021-02-17] MEDS: INSULIN REGULAR, HUMAN 100 UNIT/1 ML SQ SCH ×4 (07:30→21:44)
[2021-02-17] MEDS: INSULIN LISPRO 100 UNIT/1 ML 3ML VIAL SQ SCH ×4 (08:00→21:00)
[2021-02-17] MEDS: FAMOTIDINE 20 MG TAB PO SCH ×2 (09:21→15:47)
[2021-02-17] MEDS: APIXABAN 5 MG TABLET PO SCH ×2 (09:22→21:43)
[2021-02-17] MEDS: DEXAMETHASONE SOD PHOS INJ 4 MG/ML VIAL IV SCH (09:22)
[2021-02-17] MEDS: REMDESIVIR 100MG/NS 100ML 100 MG IV SCH (14:04)
[2021-02-17] MEDS: SIMETHICONE 80 MG CHEW PO PRN (19:00)
[2021-02-17] MEDS: ACETAMINOPHEN 325 MG TAB PO PRN (21:43)
[2021-02-17] MEDS: INSULIN GLARGINE 100 UNITS/ML VIAL SQ SCH (21:44)
[2021-02-18] VITALS (7 sets, daily range): BP systolic 115–142; BP diastolic 69–91
[2021-02-18] MEDS: SODIUM CHLORIDE 0.9% 1000ML 1,000 ML IV SCH (02:03)
[2021-02-18] MEDS: SIMETHICONE 80 MG CHEW PO PRN ×3 (02:10→22:28)
[2021-02-18] MEDS: GUAIFENESIN/DEXTROMETHORPHAN LIQD 5 ML UDC PO SCH (06:37)
[2021-02-18] MEDS: INSULIN LISPRO 100 UNIT/1 ML 3ML VIAL SQ SCH ×4 (08:00→21:30)
[2021-02-18] MEDS: INSULIN REGULAR, HUMAN 100 UNIT/1 ML SQ SCH ×4 (08:00→21:30)
[2021-02-18] MEDS: DEXAMETHASONE SOD PHOS INJ 4 MG/ML VIAL IV SCH (10:09)
[2021-02-18] MEDS: FAMOTIDINE 20 MG TAB PO SCH ×2 (10:09→16:40)
[2021-02-18] MEDS: APIXABAN 5 MG TABLET PO SCH ×2 (10:10→21:55)
[2021-02-18] MEDS: ACETAMINOPHEN 325 MG TAB PO PRN (10:14)
[2021-02-18] MEDS ORDERED: FUROSEMIDE INJ 10 MG/ML 2 ML VIAL IV ONE (13:30)
[2021-02-18] MEDS: GUAIFENESIN/DEXTROMETHORPHAN 237 ML SYRUP PO SCH ×2 (16:38→22:42)
[2021-02-18] MEDS: INSULIN GLARGINE 100 UNITS/ML VIAL SQ SCH (21:30)
[2021-02-19] VITALS (8 sets, daily range): BP systolic 108–155; BP diastolic 62–102
[2021-02-19] MEDS: GUAIFENESIN/DEXTROMETHORPHAN 237 ML SYRUP PO SCH ×3 (06:37→21:00)
[2021-02-19 07:14] LABS: BASOPHILS % 0.2 % (0.0-1.0); EOSINOPHILS % 0.1 % (0.0-6.0); HEMATOCRIT 38.5 % (34.2-44.1); HEMOGLOBIN 12.8 g/dL (12.0-16.0); LYMPHOCYTES # (AUTO) 2.6 (1.0-3.2); LYMPHOCYTES % 13.1 % (18.0-39.1); MEAN CORPUSCULAR HEMOGLOBIN 29.5 pg (28-32); MEAN CORPUSCULAR HGB CONC 33.2 g/dL (31-35); MEAN CORPUSCULAR VOLUME 88.7 fL (81-99); MONOCYTES # (AUTO) 2.2 (0.2-0.8); MONOCYTES % 11.2 % (4.4-11.3); NEUTROPHILS # (AUTO) 14.4 (2.1-6.9); NEUTROPHILS % 72.8 % (38.7-80.0); PLATELET COUNT 542 x10e3/uL (140-360); RED BLOOD COUNT 4.34 x10e6/uL (3.6-5.1); RED CELL DISTRIBUTION WIDTH 12.6 % (11.7-14.4)
[2021-02-19] MEDS: INSULIN LISPRO 100 UNIT/1 ML 3ML VIAL SQ SCH ×4 (07:30→20:58)
[2021-02-19] MEDS: INSULIN REGULAR, HUMAN 100 UNIT/1 ML SQ SCH ×4 (07:30→20:59)
[2021-02-19 07:35] LABS: ANION GAP 13.5 mmol/L (8-16); CALCIUM 7.9 mg/dL (8.4-10.2); CREATININE, SERUM 0.67 mg/dL (0.57-1.11); POTASSIUM 3.5 mmol/L (3.5-5.1)
[2021-02-19] MEDS: FAMOTIDINE 20 MG TAB PO SCH ×2 (08:18→16:04)
[2021-02-19] MEDS: APIXABAN 5 MG TABLET PO SCH ×2 (08:19→20:59)
[2021-02-19] MEDS: SIMETHICONE 80 MG CHEW PO PRN ×2 (08:19→16:37)
[2021-02-19] MEDS: DEXAMETHASONE SOD PHOS INJ 4 MG/ML VIAL IV SCH (08:19)
[2021-02-19] MEDS: ALBUTEROL SULFATE HFA 8GM INHALATION AEROSOL INH PRN (08:20)
[2021-02-19] MEDS ORDERED: FUROSEMIDE 20 MG TAB PO ONE (12:30)
[2021-02-19] MEDS: ACETAMINOPHEN 325 MG TAB PO PRN (16:38)
[2021-02-19] MEDS ORDERED: ONDANSETRON HCL 4 MG ORAL DISINTEGRATING TAB PO PRN (19:30)
[2021-02-19] MEDS ORDERED: INSULIN GLARGINE 100 UNITS/ML VIAL SQ SCH (21:00)
== END 2021-02-19 22:01 | DRG 871 ==
LOC: FSED 13:32 → ERHOLD 15:39 → MED/SURG3 18:32
PROVIDERS: ADMIT Internal Medicine; ATTEND Internal Medicine
PROC: 3E0333Z Introduction of Anti-inflammatory into Peripheral Vein, Percutaneous Approach (ICD-10-PCS; 2021-02-12)
PROC: XW033E5 Introduction of Remdesivir Anti-infective into Peripheral Vein, Percutaneous Approach, New Technology Group 5 (ICD-10-PCS; principal; 2021-02-13)
DX: A41.89 Other specified sepsis (principal); U07.1 COVID-19; J12.82 Pneumonia due to coronavirus disease 2019; J96.01 Acute respiratory failure with hypoxia; D68.51 Activated protein C resistance; E11.65 Type 2 diabetes mellitus with hyperglycemia; E78.5 Hyperlipidemia, unspecified; Z86.73 Personal history of transient ischemic attack (TIA), and cerebral infarction without residual deficits; Z96.653 Presence of artificial knee joint, bilateral; Z90.81 Acquired absence of spleen; Z79.01 Long term (current) use of anticoagulants; Z79.4 Long term (current) use of insulin
CPT/HCPCS: 36415; 71045; 71046; 80048; 80053; 80061; 80076; 81003; 82550; 82553; 82948; 83036; 83735; 84100; 84484; 85025; 85379; 96361; 96374; 99284; J0456; J0696; J1100; J1815; J1817; J1940; J7030; J7050; U0002

== ENCOUNTER 2021-03-17 19:11 | Emergency (ER) | payer BC ==
[~2021-03-17] VITALS: Ht 167.6 cm; Wt 68.9 kg
[2021-03-17] MEDS ORDERED: METHOCARBAMOL750 MG PO (19:57)
[2021-03-17] MEDS ORDERED: ACETAMINOPHEN/1 EAC1 PO (19:57)
== END 2021-03-17 20:35 | disposition home or self-care (01) ==
LOC: ER 19:55
DX: B02.9 Zoster without complications (principal)
CPT/HCPCS: 99282